=== PATIENT | male | born 1995 | race Caucasian/White ===

== ENCOUNTER 2018-07-16 10:14 | Emergency (ER) | payer OTHER, BC ==
[2018-07-16] MEDS ORDERED: Acetaminophen/HYDROcodone 325-5 MG Tab PO ONE (11:05)
[2018-07-16] MEDS ORDERED: ceFAZolin 1 GM Vial IM ONE (11:05)
--- NOTE | 2018-07-16 11:08 | EDM.PDOC ---
ED HPI GENERAL MEDICAL PROBLEM - General Chief Complaint: Upper Extremity Injury/Pain Stated Complaint: DEEP FINGER CUT Time Seen by Provider: 07/16/18 11:00 Source of Information: Reports: Patient History Limitations: Reports: No Limitations - History of Present Illness INITIAL COMMENTS - FREE TEXT/NARRATIVE: Patient was working today with a table saw and accidentally cut his left thumb. Pain is localized to the distal phalanx of the left thumb. He is able to extend and flex the DIP and has no sensory changes distally. Tetanus status is up-to- date. Pain is moderate intensity as we speak. He utilized no [id number] pain medications prior to arrival. He offers no additional complaint. Left Hand Pain Score (Numeric/FACES): 8 - Related Data Allergies Allergy/AdvReac Type Severity Reaction Status Date / Time No Known Allergies Allergy Verified 07/16/18 10:37 Home Meds: Home Meds Acetaminophen/HYDROcodone [Shelbina 325-5 MG] 1 tab PO Q6H PRN #12 tablet 07/16/18 [Rx] Cephalexin [Keflex] 500 mg PO QID #40 capsule 07/16/18 [Rx] Past Medical History - Past Health History Medical/Surgical History: Denies Medical/Surgical History Social & Family History - Tobacco Use Smoking Status *Q: Current Some Day Smoker Years of Tobacco use: 4 Packs/Tins Daily: 0 Review of Systems - Review of Systems Review Of Systems: ROS reveals no pertinent complaints other than HPI. ED EXAM, GENERAL - Physical Exam Exam: See Below Exam Limited By: No Limitations General Appearance: Alert, WD/WN, No Apparent Distress Ears: Hearing Grossly Normal Nose: Normal Inspection Throat/Mouth: Normal Voice, No Airway Compromise Neck: Normal Inspection, Supple Respiratory/Chest: No Respiratory Distress, No Accessory Muscle Use Cardiovascular: Normal Peripheral Pulses, Regular Rate, Rhythm Peripheral Pulses: 2+: Radial (L) Extremities: Other (Patient has multiple lacerations to the medial side of the left thumb and also encompassing the base of the nailbed. Patient got his thumb caught in a table saw. This happened about 1 hour prior to arrival. Bleeding controlled with direct pressure. Pain is localized to the laceration site. He has no sensory/motor deficits noted. He is able to flex and extend the DIP against resistance with no weakness noted. No sensory is noted to the distal aspect of the thumb. No pain otherwise noted on examination.) Neurological: Alert, Oriented, CN II-XII Intact, Normal Cognition, No Motor/ Sensory Deficits Psychiatric: Normal Affect, Normal Mood Skin Exam: Warm, Dry ED TRAUMA EXTREMITY PROCEDURES - Laceration/Wound Repair Left Digit - 1st (Thumb) Lac/Wound Length In cm: 3 (Patient has multiple lacerations to the distal thumb. These were approximated well with simple interrupted and mattress sutures. I do not individually close each laceration to the proximity.) Appearance: Muscle, Irregular, Clean Distal NVT: Neuro & Vascular Intact, No Tendon Injury Anesthetic Type: Digital Local Anesthesia - Lidocaine (Xylocaine): 1% Plain Local Anesthetic Volume: Other (8) Skin Prep: Chlorhexidine (Hibiciens), Sterile Drape Exploration/Debridement/Repair: Wound Explored, Explored to Base, No Foreign Material Found, Wound Margins Revised, Multiple Flaps Aligned Closed With: Sutures Suture Size: 4-0 # of Sutures: 9 Suture Type: Prolene, Interrupted (7), Mattress (2) Drain Placement: No Sterile Dressing Applied: Nurse (With splint.) Tetanus Status Addressed: Yes Complications: No Course - Vital Signs Last Recorded V/S: Last Vital Signs Temp 99.1 F 07/16/18 10:38 Pulse 85 07/16/18 10:38 Resp 16 07/16/18 10:38 BP 133/82 07/16/18 10:38 Pulse Ox 100 07/16/18 10:38 - Orders/Labs/Meds Orders: Active Orders 24 hr Category Date Time Status Fingers Thumb Lt FA [CR] Stat Exams 07/16/18 11:05 Taken Meds: Medications Discontinued Medications Generic Name Dose Route Start Last Admin Trade Name Jack PRN Reason Stop Dose Admin Hydrocodone Bitart/Acetaminophen 1 tab 07/16/18 11:05 07/16/18 11:37 Shelbina 325-5 Mg PO 07/16/18 11:06 1 tab ONETIME ONE Administration Cefazolin Sodium 1 gm 07/16/18 11:05 07/16/18 11:37 Ancef IM 07/16/18 11:06 1 gm ONETIME ONE Administration - Re-Assessments/Exams Free Text/Narrative Re-Assessment/Exam: Multiple lacerations to the dorsal aspect of the left thumb. Patient's have a significant amount of pain with palpation. I ordered Ancef 1 g IM. Shelbina 5?3 25 one tab by mouth. In addition patient will remain nothing by mouth until detailed exam is able to take place. Also will perform digital block with lidocaine 1%. 07/16/18 11:57 X-ray of the left thumb revealed tuft fracture. Will be treating for open fracture. Patient has multiple lacerations in close proximity to each other. Unable to individually close the lacerations with sutures. Utilize single interrupted/ mattress sutures to approximate multiple lacerations at a time. Nailbed was involved with tissue missing proximally. 2 sutures were placed in the nail bed into the distal aspect of the nail that is remaining to approximate the wound located to the center aspect of the nail. Departure - Departure Time of Disposition: 12:41 Disposition: Home, Self-Care 01 Condition: Good Clinical Impression: Open finger fracture Qualifiers: Encounter type: initial encounter Finger: thumb Phalanx: distal Fracture alignment: nondisplaced Laterality: left Qualified Code(s): S62.525B - Nondisplaced fracture of distal phalanx of left thumb, initial encounter for open fracture - Discharge Information *PRESCRIPTION DRUG MONITORING PROGRAM REVIEWED*: Not Applicable *COPY OF PRESCRIPTION DRUG MONITORING REPORT IN PATIENT [place]: Not Applicable Prescriptions: Acetaminophen/HYDROcodone [Shelbina 325-5 MG] 1 tab PO Q6H PRN #12 tablet PRN Reason: Pain (Severe 7-10) Cephalexin [Keflex] 500 mg PO QID #40 capsule Instructions: Cast or Splint Care, Adult, [id number], Finger Fracture Referrals: PCP,None [Primary Care Provider] - Forms: ED Department Discharge, ED Return to Work/School Form Additional Instructions: Keep splint and dressing in place until tomorrow morning. Cleanse site twice daily with soap and water, pat dry, reapply heavy coat of bacitracin, reapply dressing/splint. You have an open fracture to the distal finger. Take Keflex 500 mg 4 times a day. Take ibuprofen 600 mg every 6 hours with food and water for pain. For severe pain take Shelbina one tab every [address] today and/or while taking the Shelbina. Elevate when able to reduce any swelling and pain. Call and make an appointment to be evaluated by orthopedic surgeon of your choice at your hometown for this coming Friday or Friday. Refrain from utilizing the left hand until evaluated by orthopedic surgeon for any heavy lifting. Utilize splint until evaluated by orthopedic surgeon. Sutures will come out in 10 days see your PCP to have them removed. Return to the ED if you develop any new or worsening symptoms as discussed. - My Orders Last 24 Hours: My Active Orders 07/16/18 11:05 Fingers Thumb Lt FA [CR] Stat - Assessment/Plan Last 24 Hours: My Active Orders 07/16/18 11:05 Fingers Thumb Lt FA [CR] Stat
--- NOTE | 2018-07-16 17:15 | CR ---
Left thumb: Three views of the left thumb were obtained. Comparison: No previous thumb study. Small fracture fragments are identified off the tuft of the distal phalanx. No additional fracture or other bony abnormality is seen. Soft tissue injury is seen distally. Impression: 1. Small fracture fragments off the tuft of the distal left thumb. 2. Soft tissue injury. Diagnostic code #3
== END 2018-07-16 13:12 | disposition home or self-care (01) ==
LOC: JD.ED 10:14
DX: S62.525B Nondisplaced fracture of distal phalanx of left thumb, initial encounter for open fracture (principal); F17.200 Nicotine dependence, unspecified, uncomplicated; W26.8XXA Contact with other sharp object(s), not elsewhere classified, initial encounter
CPT/HCPCS: 12002; 73140; 96372; 99284; A9270; J0690; 64450; 99283-25